=== PATIENT | male | born 1980 | race Caucasian/White ===

== ENCOUNTER 2018-12-21 21:37 | Emergency (ER) | payer SELFPAY ==
[~2018-12-21] VITALS: Ht 180.3 cm; Wt 73.0 kg
[2018-12-21] MEDS ORDERED: FENTANYL CITRATE/PF 50MCG/ML 2ML VIAL IV ONE (22:30)
[2018-12-21] MEDS ORDERED: PROPOFOL 200MG/20ML VIAL IV ONE (23:00)
[2018-12-21] MEDS ORDERED: KETAMINE HCL 50 MG/ML 10ML IV ONE (23:00)
[2018-12-22] MEDS ORDERED: ONDANSETRON HCL 4MG/2ML INJ IV ONE (00:15)
[2018-12-22 00:42] VITALS: BP 128/70
== END 2018-12-22 00:52 | disposition home or self-care (01) ==
LOC: ER 21:37
DX: S82.54XA Nondisplaced fracture of medial malleolus of right tibia, initial encounter for closed fracture (principal); W01.0XXA Fall on same level from slipping, tripping and stumbling without subsequent striking against object, initial encounter; Y93.66 Activity, soccer; Y92.89 Other specified places as the place of occurrence of the external cause
CPT/HCPCS: 27840; 73562; 73600; 73610; 96374; 96375; 99152; 99285; J2405; J2704; J3010; J3490